=== PATIENT | female | born 1950 | race Caucasian/White ===

== ENCOUNTER 2017-01-07 08:39 | Emergency (ER) | payer MEDICARE, OTHER | END 2017-01-07 09:55 | disposition home or self-care (01) | LOC: ER 08:39 | DX: S00.12XA Contusion of left eyelid and periocular area, initial encounter (principal); R05 Cough; I48.91 Unspecified atrial fibrillation; I11.0 Hypertensive heart disease with heart failure; I50.9 Heart failure, unspecified; E78.5 Hyperlipidemia, unspecified; Z79.01 Long term (current) use of anticoagulants; Z79.899 Other long term (current) drug therapy; Z88.0 Allergy status to penicillin; X58.XXXA Exposure to other specified factors, initial encounter | CPT/HCPCS: 36415 ==